=== PATIENT | female | born 1995 | race Two or more races ===

== ENCOUNTER 2025-01-31 00:06 | Emergency (ER) | payer OTHER ==
[~2025-01-31] VITALS: Ht 160 cm; Wt 77.1 kg
[2025-01-31] MEDS ORDERED: 0.9 % SODIUM CHLORIDE 1,000 ML IV STA (02:14)
[2025-01-31 03:04] LABS: BASO % 0.7 % (0.1-1.2); EOS # 0.22 (0.04-0.54); EOS % 2.1 % (0.7-7.0); LYMPH # 3.61 (1.18-3.74); LYMPH % 34.5 % (19.3-53.1); MEAN PLATELET VOLUME 11.10 fl (9.4-12.4); MONO # 0.56 (0.24-0.82); MONO % 5.4 % (4.7-12.5); NEUT # 5.96 (1.56-6.13); NEUT % 56.9 % (34.0-71.1); RED CELL DISTRIBUTION WIDTH 13.8 % (11.6-14.4)
[2025-01-31] MEDS ORDERED: KETOROLAC TROMETHAMINE 30 MG VIAL IV STA (03:09)
[2025-01-31 03:36] LABS: INR 1.0
[2025-01-31 04:11] LABS: ALT/SGPT 20.0 U/L (12-78); AST/SGOT 11.0 U/L (15-37); BILIRUBIN TOTAL 0.26 mg/dL (0.3-1.2); BUN CREA RATIO 15.0 (7.0-25.0); CREATININE SERUM 0.84 mg/dL (0.55-1.02); GFR 80.16; GLOBULINA 4.0 G/DL (2.4-3.5); GLUCOSE FASTING 104.0 mg/dL (65-100); OSMOLALITY SERUM 284.0 MOSM/KG (275-295)
[2025-01-31 04:12] LABS: HCG QUANTITATIVE 2258.0 mUI/mL (1-3)
== END 2025-01-31 05:01 | disposition home or self-care (01) ==
LOC: ER 00:06
DX: O20.8 Other hemorrhage in early pregnancy (principal); Z3A.01 Less than 8 weeks gestation of pregnancy; R10.9 Unspecified abdominal pain